=== PATIENT | female | born 1955 | race Caucasian/White ===

== ENCOUNTER 2017-01-15 10:23 | Emergency (ER) | payer OTHER ==
[2017-01-15 10:43] VITALS: RESP 18
--- NOTE | 2017-01-15 11:11 | ED ---
General Adult HPI - General Chief complaint: Fall Stated complaint: Fall Time Seen by Provider: 01/15/17 10:52 Source: patient, RN notes reviewed Mode of arrival: ambulatory Limitations: physical limitation - History of Present Illness Initial comments: 61 yo female presents chief complaint of fall. Patient states she was doing some decorating on the cabinets in her kitchen she lost her balance she fell down she hit her ribs on the right side on a dining room chair and then hit her head. Patient does not know if she passed out or not. Patient states she has a mild headache and some neck stiffness. Patient also complains of some right rib pain after back pain meds causing some numbness and tingling down her left leg. Patient denies any saddle anesthesia any loss by bladder function. Patient states that her ribs are just irritated. Patient denies any abdominal pain. Patient denies any nausea or vomiting. Patient states that she was concerned because she just feels as if she hit. Heart so she thought that she should be seen. Patient states that she does not take any blood thinners and denies any significant health history. Patient states that she is not currently having any other symptoms. Patient states her pain is mild. Patient states just feels as if her whole body was in a car accident afterwards. She just feels tense and sore everywhere. Patient denies any recent fever, chills, shortness of breath, abdominal pain, nausea vomiting, numbness or tingling, dysuria or hematuria, constipation or diarrhea, visual changes, or any other current symptoms. - Related Data Home Medications Medication Instructions Recorded Confirmed FLUoxetine HCL [PROzac] 20 mg PO HS 01/15/17 01/15/17 Previous Rx's Medication Instructions Recorded Hydrocodone/Acetaminophen [[place] 1 each PO Q6HR PRN #20 tab 01/15/17 5-325] Orphenadrine [Norflex] 100 mg PO Q12H #10 tablet.er 01/15/17 Allergies Allergy/AdvReac Type Severity Reaction Status Date / Time No Known Allergies Allergy Verified 01/15/17 10:51 Review of Systems ROS Statement: Those systems with pertinent positive or pertinent negative responses have been documented in the HPI. ROS Other: All systems not noted in ROS Statement are negative. Past Medical History Past Medical History: No Reported History History of Any Multi-Drug Resistant Organisms: MRSA Date of last positivie culture/infection: 2006 MDRO Source:: BREAST Past Surgical History: Appendectomy, Section, Cholecystectomy Additional Past Surgical History / Comment(s): BREAST REDUCTION Past Psychological History: No Psychological Hx Reported Smoking Status: Never smoker Past Alcohol Use History: None Reported Past Drug Use History: None Reported General Exam - General Exam Comments Initial Comments: General: The patient is awake and alert, in no distress, and does not appear acutely ill. : Patient. Hematoma to the right upper side of the head Eye: Pupils are equal, round and reactive to light, extra-ocular movements are intact; there is normal conjunctiva bilaterally. No signs of icterus. Ears, nose, mouth and throat: There are moist mucous membranes and no oral lesions. Neck: The neck is supple, there is no tenderness. Cardiovascular: There is a regular rate and rhythm. No murmur, rub or gallop is appreciated. Respiratory: Lungs are clear to auscultation, respirations are non-labored, breath sounds are equal. No wheezes, stridor, rales, or rhonchi.patient has tenderness along the right lateral chest wall. Gastrointestinal: Soft, non-distended, non-tender abdomen without masses or organomegaly noted. There is no rebound or guarding present. No CVA tenderness. Bowel sounds are unremarkable. Back: There is no tenderness to palpation in the midline. There is no obvious deformity. No rashes noted. Musculoskeletal: Normal ROM, no tenderness, There is no pedal edema. There is no calf tenderness or swelling. Sensation intact. Pulses equal bilaterally 2+. Neurological: CN II-XII intact, There are no obvious motor or sensory deficits. Coordination appears grossly intact. Speech is normal. Skin: Skin is warm and dry and no rashes or lesions are noted. Psychiatric: Cooperative, appropriate mood & affect, normal judgment. Limitations: physical limitation Course Vital Signs 01/15/17 10:37 Temperature 98.4 F Pulse Rate 81 Respiratory 18 Rate Blood Pressure 128/61 O2 Sat by Pulse 97 Oximetry Medical Decision Making - Medical Decision Making 61-year-old female presents emergency room chief complaint of fall.at this time patient's images have been reviewed and are negative acute processes. At this time we did discuss that there is follow-up for this. We discussed follow-up on the ribs to discuss follow-up on the Bactrim. We discussed what to do about her head injury to watch for we discussed return parameters and all her questions. She stated that she understood and she is in agreement with this plan. All questions have been answered. She will be discharged.. - Radiology Data Radiology results: report reviewed, image reviewed Disposition Clinical Impression: Fall, Cervical strain, acute, Lumbar strain, Scalp hematoma, Head injury due to trauma, Contusion of rib on right side Disposition: HOME SELF-CARE Condition: Stable Instructions: Head Injury (ED), Lower Back Exercises (ED), Low Back Strain (ED) , Rib Contusion (ED) Additional Instructions: Please use medication as discussed. Please follow up with family doctor if symptoms have not improved over the next two days. Please return to the emergency room if your symptoms increase or worsen or for any other concerns. Prescriptions: Hydrocodone/Acetaminophen [[place] 5-325] 1 each PO Q6HR PRN #20 tab PRN Reason: Pain Orphenadrine [Norflex] 100 mg PO Q12H #10 tablet.er Referrals: Martha Torres DO [Primary Care Provider] - 1-2 days Time of Disposition: 12:38
--- NOTE | 2017-01-15 11:56 | XR ---
Lumbar spine HISTORY: Trauma and pain 3 views of the lumbar spine Comparisons Lumbar vertebral bodies show height, alignment, and bone dictation is mildly reduced. There is multil evel spondylosis. Sclerosis present in the posterior elements of the lower lumbar spine compatible wi th facet arthropathy mild loss of disc height present at L1-2. Surgical clips present in the right up per quadrant. IMPRESSION: Degenerative disc disease. Facet arthropathy.
--- NOTE | 2017-01-15 12:06 | XR ---
Chest x-ray with right RIBS HISTORY: Trauma and pain Frontal view of the chest, 4 views of the right ribs No comparisons No pneumothorax or pleural effusion. No displaced rib fracture. Cardiac mediastinal silhouette, pulmo nary vascularity and tonio within normal limits accounting for rotation. Evidence of old granulomatous disease present in the right lower lobe. Surgical clips present in the right upper quadrant. IMPRESSION: No displaced rib fracture, consider bone scan for increased sensitivity as indicated. No acute cardiopulmonary disease.
--- NOTE | 2017-01-15 12:13 | CT ---
EXAMINATION TYPE: CT brain radha [facility] DATE OF EXAM: 01/15/2017 COMPARISON: NONE HISTORY: Fall CT DLP: 1398.[address] of the brain was performed. The ventricles, basal cisterns and sulci overlying the cerebral convexities demonstrate mild enlargem ent. There is no evidence for intracranial hemorrhage or sulcal effacement. There is decreased attenuatio n about the periventricular white matter and deep white matter of both cerebral hemispheres, compatib le with chronic small vessel ischemia. No mass effects are seen. If symptoms persist consider MRI. Osseous calvarium is intact. IMPRESSION: 1. Age related atrophic and chronic small vessel ischemic change without acute intracranial process seen at this time. CT Cervical Spine: Unenhanced CT of the cervical spine was performed with bone and soft tissue window settings submitted . Coronal and sagittal reconstruction is obtained. There is normal alignment and prevertebral soft tissues. No evidence for acute cervical fracture . Scattered degenerative disc disease and spondylosis. Biapical scarring. IMPRESSION: 1. No evidence for acute fracture or subluxation of the cervical spine.
[2017-01-15] MEDS ORDERED: HYDROcodone/APAP 5-325MG 1 EACH TAB PO STA (12:35)
[2017-01-15 13:14] VITALS: BP 125/84; PULSE 78; TEMP 97.7
== END 2017-01-15 13:17 | disposition home or self-care (01) ==
LOC: EC 10:23
DX: S16.1XXA Strain of muscle, fascia and tendon at neck level, initial encounter (principal); S39.012A Strain of muscle, fascia and tendon of lower back, initial encounter; S00.03XA Contusion of scalp, initial encounter; S20.211A Contusion of right front wall of thorax, initial encounter; Z86.14 Personal history of Methicillin resistant Staphylococcus aureus infection; Z79.899 Other long term (current) drug therapy; W01.190A Fall on same level from slipping, tripping and stumbling with subsequent striking against furniture, initial encounter; Y92.000 Kitchen of unspecified non-institutional (private) residence as the place of occurrence of the external cause
CPT/HCPCS: 70450; 72100; 72125; 99284

== ENCOUNTER 2017-06-22 19:07 | Inpatient (IN) | payer OTHER ==
[2017-06-22] MEDS ORDERED: SODIUM CHLORIDE 0.9% 500 ML IV STA (20:00)
[2017-06-22] MEDS ORDERED: ONDANSETRON 4 MG/2 ML VIAL IVP STA (20:00)
[2017-06-22] MEDS ORDERED: PANTOPRAZOLE 40 MG/10 ML VIAL IVP STA (20:00)
--- NOTE | 2017-06-22 20:07 | ED ---
General Adult HPI - General Chief complaint: GI Bleed Stated complaint: RECTAL BLEEDING Time Seen by Provider: 06/22/17 19:48 Source: patient, RN notes reviewed, old records reviewed Mode of arrival: ambulatory Limitations: no limitations - History of Present Illness Initial comments: Chief complaint and history of present illness this is a 61-year-old female with a complaint of having flu-type symptoms she described it multiple people at work for the same way nausea vomiting. She said she felt feverish but no back pain. She had loose stool. Throughout the evening she developed bloody stool and then blood around the stool. She does report that she has hemorrhoids. She also reports several weeks ago she had a funny sensation of chest pressure or heaviness lasted several minutes. She also states that due to employment and possible closing of her stool or she's been very anxious. - Related Data Home Medications Medication Instructions Recorded Confirmed FLUoxetine HCL [PROzac] 20 mg PO HS 01/15/17 06/22/17 Naproxen Sodium [Aleve] 220 mg PO BID 06/22/17 06/22/17 Allergies Allergy/AdvReac Type Severity Reaction Status Date / Time No Known Allergies Allergy Verified 06/22/17 19:37 Review of Systems ROS Statement: Those systems with pertinent positive or pertinent negative responses have been documented in the HPI. Review of systems at this time no headache or visual acuity changes no sore throat. No chest heaviness chest pressure and no shortness of breath. She has this discomfort to the abdomen mainly in the right upper quadrant and right midabdomen. She reports dry heaves last night and loose stool throughout the day. No neuro deficits. She also reports having had blood in her stool but adds that she has a history of hemorrhoids as well. All systems are reviewed. Past medical problems significant for hemorrhoids,. Her surgeries include appendectomy, 2 C-sections, cholecystectomy and breast reduction. Family history no cancers. She denies any ALLERGIES. She is a nonsmoker. Drink alcohol socially. ROS Other: All systems not noted in ROS Statement are negative. Past Medical History Past Medical History: No Reported History Additional Past Medical History / Comment(s): hemmorhoids. History of Any Multi-Drug Resistant Organisms: MRSA Date of last positivie culture/infection: 2006 MDRO Source:: BREAST Past Surgical History: Appendectomy, Section, Cholecystectomy Additional Past Surgical History / Comment(s): BREAST REDUCTION Past Psychological History: No Psychological Hx Reported Smoking Status: Never smoker Past Alcohol Use History: None Reported Past Drug Use History: None Reported General Exam - General Exam Comments Initial Comments: General: The patient is awake and alert, reportedly had dry heaves and diarrhea since last night. Crampy abdominal discomfort mainly in the right side. Vital signs shows temperature 98.0 pulse 100 respiratory rate 16 pulse ox 95% room air blood pressure 135/68 Eye: Pupils are equal, round and reactive to light, extra-ocular movements are intact ; there is normal conjunctiva bilaterally. No signs of icterus. Ears, nose, mouth and throat: There are moist mucous membranes and no oral lesions. Neck: The neck is supple, there is no tenderness . Cardiovascular: There is a regular rate and rhythm. No murmur, rub or gallop is appreciated. Respiratory: Lungs are clear to auscultation, respirations are non-labored, breath sounds are equal. No wheezes, stridor, rales, or rhonchi. Gastrointestinal: Soft, non-distended, mildly tender abdomen without masses or organomegaly noted. There is no rebound or guarding present. No CVA tenderness. Bowel sounds are unremarkable. Back: There is no tenderness to palpation in the midline. There is no obvious deformity. No rashes noted. Musculoskeletal: Normal ROM, no tenderness, There is no pedal edema. There is no calf tenderness or swelling. Sensation intact. Neurological: No neuro deficits. Skin: Skin is warm and dry and no rashes or lesions are noted. Psychiatric: Cooperative, patient states she may have had an anxiety attack several weeks ago because her place of employment is closing. Limitations: no limitations Course Vital Signs 06/22/17 06/22/17 06/22/17 19:12 20:45 21:46 Temperature 98 F Pulse Rate 100 82 74 Respiratory 16 18 18 Rate Blood Pressure 135/68 140/63 144/64 O2 Sat by Pulse 95 94 L 97 Oximetry 06/22/17 06/22/17 22:30 23:31 Temperature Pulse Rate 86 90 Respiratory 18 18 Rate Blood Pressure 142/67 140/64 O2 Sat by Pulse 96 96 Oximetry EKG Findings - EKG Comments: EKG Findings:: EKG was done and reviewed at 2014 showing normal sinus rhythm nonspecific ST-T wave changes. Rate 82. Was 146 QRS 74 QT [address] Chiu Medical Decision Making - Medical Decision Making Medical decision making; this is a 61-year-old female here with several complaints. The patient reports that she had some blood in her stool earlier today she was suffering some flu type symptoms with nausea but no vomiting L feverish and then followed by loose stool. Her discomfort is more toward the right lower quadrant area. Decreased appetite and chills. Labs show white count 17 hemoglobin 15 hematocrit of 43 with an INR 1.0 and a potassium 3.9 BUN 10 creatinine 0.7 GFR greater than 90. Glucose 114. Urine shows 2 reds 5 whites. Influenza AB reported to be negative.C. diff negative. To examination done with the assistance of Keily, [employer] tech was black in color and guaiac positive on testing. Patient continues have discomfort more toward the right lower quadrant area CAT scan with IV and oral contrast has been ordered. X-ray of the abdomen was done 2 views and reviewed by radiologist his impression is there is no definite free intraperitoneal air. There is nonspecific nonobstructive bowel gas pattern. Surgical clips are seen in the gallbladder fossa. Soft tissue density in the pelvis is felt to be urinary bladder. Impression no significant findings. As read by Dr. Singh CT of the abdomen was done with IV and oral contrast. The significant findings include there is a long segment of wall thickening involving the right colon consistent with nonspecific colitis. The wall thickening is non-warm and this is more likely Crohn's disease or infectious colitis. I think ischemic colitis less light. No evidence of bowel obstruction. Low density left adrenal mass consistent with a benign etiology. Multiple hepatic cysts. 2 cm right renal cortical cyst. As read by Dr. Kimble I reported this to the patient. the patient has been started on antibiotics including Zosyn and Flagyl. Patient be admitted to the hospital for further evaluation . - Lab Data Result diagrams: 06/22/17 20:35 06/22/17 20:35 Lab Results 06/22/17 06/22/17 06/22/17 Range/Units 20:35 20:35 20:35 WBC (3.8-10.6) k/uL RBC (3.80-5.40) m/uL Hgb (11.4-16.0) gm/dL Hct (34.0-46.0) % MCV (80.0-100.0) fL MCH (25.0-35.0) pg MCHC (31.0-37.0) g/dL RDW (11.5-15.5) % Plt Count (150-450) k/uL Neutrophils % % Lymphocytes % % Monocytes % % Eosinophils % % Basophils % % Neutrophils # (1.3-7.7) k/uL Lymphocytes # (1.0-4.8) k/uL Monocytes # (0-1.0) k/uL Eosinophils # (0-0.7) k/uL Basophils # (0-0.2) k/uL PT (9.0-12.0) sec INR (<1.2) Sodium 140 (137-145) mmol/L Potassium 3.9 (3.5-5.1) mmol/L Chloride 103 (98-107) mmol/L Carbon Dioxide 26 (22-30) mmol/L Anion Gap 11 mmol/L BUN 10 (7-17) mg/dL Creatinine 0.70 (0.52-1.04) mg/dL Est GFR (CKD-EPI)AfAm >90 (>60 ml/min/1.73 sqM) Est GFR (CKD-EPI)NonAf >90 (>60 ml/min/1.73 sqM) Glucose 114 H (74-99) mg/dL Plasma Lactic Acid Manjeet (0.7-2.0) mmol/L Calcium 9.3 (8.4-10.2) mg/dL Total Bilirubin 0.7 (0.2-1.3) mg/dL AST 22 (14-36) U/L ALT 26 (9-52) U/L Alkaline Phosphatase 103 (38-126) U/L Total Creatine Kinase 66 (30-135) U/L CK-MB (CK-2) 0.6 (0.0-2.4) ng/mL CK-MB (CK-2) Rel Index 0.9 Troponin I <0.012 (0.000-0.034) ng/mL Total Protein 7.3 (6.3-8.2) g/dL Albumin 4.2 (3.5-5.0) g/dL Amylase 34 (30-110) U/L Lipase 71 (23-300) U/L Urine Color Urine Appearance (Clear) Urine pH (5.0-8.0) Ur Specific [place] (1.001-1.035) Urine Protein (Negative) Urine Glucose (UA) (Negative) Urine Ketones (Negative) Urine Blood (Negative) Urine Nitrite (Negative) Urine Bilirubin (Negative) Urine Urobilinogen (<2.0) mg/dL Ur Leukocyte Esterase (Negative) Urine RBC (0-5) /hpf Urine WBC (0-5) /hpf Ur Squamous Epith Cells (0-4) /hpf Amorphous Sediment (None) /hpf Urine Mucus (None) /hpf Stool Occult Blood (Negative) C. difficile (EIA) Intrp Negative (Negative) Influenza Type A RNA (Not Detectd) Influenza Type B (PCR) (Not Detectd) 06/22/17 06/22/17 06/22/17 Range/Units 20:35 20:35 20:35 WBC 17.1 H (3.8-10.6) k/uL RBC 4.69 (3.80-5.40) m/uL Hgb 15.1 (11.4-16.0) gm/dL Hct 43.2 (34.0-46.0) % MCV 92.0 (80.0-100.0) fL MCH 32.2 (25.0-35.0) pg MCHC 35.0 (31.0-37.0) g/dL RDW 12.6 (11.5-15.5) % Plt Count 205 (150-450) k/uL Neutrophils % 82 % Lymphocytes % 12 % Monocytes % 4 % Eosinophils % 1 % Basophils % 0 % Neutrophils # 14.0 H (1.3-7.7) k/uL Lymphocytes # 2.1 (1.0-4.8) k/uL Monocytes # 0.8 (0-1.0) k/uL Eosinophils # 0.1 (0-0.7) k/uL Basophils # 0.0 (0-0.2) k/uL PT 10.1 (9.0-12.0) sec INR 1.0 (<1.2) Sodium (137-145) mmol/L Potassium (3.5-5.1) mmol/L Chloride (98-107) mmol/L Carbon Dioxide (22-30) mmol/L Anion Gap mmol/L BUN (7-17) mg/dL Creatinine (0.52-1.04) mg/dL Est GFR (CKD-EPI)AfAm (>60 ml/min/1.73 sqM) Est GFR (CKD-EPI)NonAf (>60 ml/min/1.73 sqM) Glucose (74-99) mg/dL Plasma Lactic Acid Manjeet 1.5 (0.7-2.0) mmol/L Calcium (8.4-10.2) mg/dL Total Bilirubin (0.2-1.3) mg/dL AST (14-36) U/L ALT (9-52) U/L Alkaline Phosphatase (38-126) U/L Total Creatine Kinase (30-135) U/L CK-MB (CK-2) (0.0-2.4) ng/mL CK-MB (CK-2) Rel Index Troponin I (0.000-0.034) ng/mL Total Protein (6.3-8.2) g/dL Albumin (3.5-5.0) g/dL Amylase (30-110) U/L Lipase (23-300) U/L Urine Color Urine Appearance (Clear) Urine pH (5.0-8.0) Ur Specific [place] (1.001-1.035) Urine Protein (Negative) Urine Glucose (UA) (Negative) Urine Ketones (Negative) Urine Blood (Negative) Urine Nitrite (Negative) Urine Bilirubin (Negative) Urine Urobilinogen (<2.0) mg/dL Ur Leukocyte Esterase (Negative) Urine RBC (0-5) /hpf Urine WBC (0-5) /hpf Ur Squamous Epith Cells (0-4) /hpf Amorphous Sediment (None) /hpf Urine Mucus (None) /hpf Stool Occult Blood (Negative) C. difficile (EIA) Intrp (Negative) Influenza Type A RNA (Not Detectd) Influenza Type B (PCR) (Not Detectd) 06/22/17 06/22/17 06/22/17 Range/Units 20:35 20:35 22:35 WBC (3.8-10.6) k/uL RBC (3.80-5.40) m/uL Hgb (11.4-16.0) gm/dL Hct (34.0-46.0) % MCV (80.0-100.0) fL MCH (25.0-35.0) pg MCHC (31.0-37.0) g/dL RDW (11.5-15.5) % Plt Count (150-450) k/uL Neutrophils % % Lymphocytes % % Monocytes % % Eosinophils % % Basophils % % Neutrophils # (1.3-7.7) k/uL Lymphocytes # (1.0-4.8) k/uL Monocytes # (0-1.0) k/uL Eosinophils # (0-0.7) k/uL Basophils # (0-0.2) k/uL PT (9.0-12.0) sec INR (<1.2) Sodium (137-145) mmol/L Potassium (3.5-5.1) mmol/L Chloride (98-107) mmol/L Carbon Dioxide (22-30) mmol/L Anion Gap mmol/L BUN (7-17) mg/dL Creatinine (0.52-1.04) mg/dL Est GFR (CKD-EPI)AfAm (>60 ml/min/1.73 sqM) Est GFR (CKD-EPI)NonAf (>60 ml/min/1.73 sqM) Glucose (74-99) mg/dL Plasma Lactic Acid Manjeet (0.7-2.0) mmol/L Calcium (8.4-10.2) mg/dL Total Bilirubin (0.2-1.3) mg/dL AST (14-36) U/L ALT (9-52) U/L Alkaline Phosphatase (38-126) U/L Total Creatine Kinase (30-135) U/L CK-MB (CK-2) (0.0-2.4) ng/mL CK-MB (CK-2) Rel Index Troponin I (0.000-0.034) ng/mL Total Protein (6.3-8.2) g/dL Albumin (3.5-5.0) g/dL Amylase (30-110) U/L Lipase (23-300) U/L Urine Color Light Yellow Urine Appearance Clear (Clear) Urine pH 5.5 (5.0-8.0) Ur Specific [place] 1.008 (1.001-1.035) Urine Protein Negative (Negative) Urine Glucose (UA) Negative (Negative) Urine Ketones Negative (Negative) Urine Blood Small H (Negative) Urine Nitrite Negative (Negative) Urine Bilirubin Negative (Negative) Urine Urobilinogen <2.0 (<2.0) mg/dL Ur Leukocyte Esterase Trace H (Negative) Urine RBC 2 (0-5) /hpf Urine WBC 5 (0-5) /hpf Ur Squamous Epith Cells <1 (0-4) /hpf Amorphous Sediment Rare H (None) /hpf Urine Mucus Occasional H (None) /hpf Stool Occult Blood Positive H (Negative) C. difficile (EIA) Intrp (Negative) Influenza Type A RNA Not Detected (Not Detectd) Influenza Type B (PCR) Not Detected (Not Detectd) Disposition Clinical Impression: Infectious colitis Disposition: ADMITTED IP TO THIS HOSP Condition: Serious Referrals: Martha Torres DO [Primary Care Provider] - 1-2 days
[2017-06-22 21:01] LABS: Basophils % (A) 0 %; Eosinophils # (A) 0.1 k/uL (0-0.7); Eosinophils % (A) 1 %; HCT 43.2 % (34.0-46.0); HGB 15.1 gm/dL (11.4-16.0); Lymphocytes # (A) 2.1 k/uL (1.0-4.8); Lymphocytes % (A) 12 %; MCH 32.2 pg (25.0-35.0); Mean Platelet Volume 7.1; Monocytes # (A) 0.8 k/uL (0-1.0); Monocytes % (A) 4 %; Neutrophils % (A) 82 %; Platelet Count 205 k/uL (150-450); RBC 4.69 m/uL (3.80-5.40); RDW 12.6 % (11.5-15.5); WBC 17.1 k/uL (3.8-10.6)
[2017-06-22 21:04] LABS: Amorphous Sediment,Urine Rare /hpf; Appearance,Urine Clear (Clear); Bilirubin,Urine Negative (Negative); Blood,Urine Small (Negative); Color,Urine Light Yellow; Glucose,Urine (UA) Negative (Negative); Ketones,Urine Negative (Negative); Leukocyte Esterase,Urine Trace (Negative); Mucus,Urine Occasional /hpf; Nitrite,Urine Negative (Negative); PH, Urine 5.5 (5.0-8.0); Protein,Urine Negative (Negative); RBC,Urine 2 /hpf (0-5); Specific Gravity,Urine 1.008 (1.001-1.035); Squamous Epithelial Cell,Urine <1 /hpf (0-4); Urobilinogen,Urine <2.0 mg/dL (<2.0); WBC,Urine 5 /hpf (0-5)
[2017-06-22 21:11] LABS: Prothrombin Time 10.1 sec (9.0-12.0)
[2017-06-22 21:13] LABS: ALT 26 U/L (9-52); AST 22 U/L (14-36); Albumin 4.2 g/dL (3.5-5.0); Alkaline Phosphatase 103 U/L (38-126); Amylase 34 U/L (30-110); Anion Gap 11 mmol/L; Blood Urea Nitrogen 10 mg/dL (7-17); Calcium 9.3 mg/dL (8.4-10.2); Carbon Dioxide 26 mmol/L (22-30); Chloride 103 mmol/L (98-107); Glucose 114 mg/dL (74-99); Lipase 71 U/L (23-300); Potassium 3.9 mmol/L (3.5-5.1); Sodium 140 mmol/L (137-145); Total Bilirubin 0.7 mg/dL (0.2-1.3); Total Protein 7.3 g/dL (6.3-8.2)
--- NOTE | 2017-06-22 21:14 | XR ---
Examination: Abdomen complete 4 views the abdomen were obtained. A single upright and 3 supine. HISTORY: Abdominal pain FINDINGS: There is no definitive free intraperitoneal air. There is nonspecific nonobstructive bowel gas pattern. Surgical clips are seen in the gallbladder fos sa. Soft tissue density in the pelvis is felt to be the urinary bladder. IMPRESSION: No significant findings.
[2017-06-22 21:22] LABS: Creatine Kinase 66 U/L (30-135)
[2017-06-22 21:36] LABS: Creatine Kinase MB 0.6 ng/mL (0.0-2.4); Troponin I <0.012 ng/mL (0.000-0.034)
[2017-06-22] MEDS ORDERED: RX INFO: IV CONTRAST WAS GIVEN 1 EACH MISC MISCELLANE PRN (22:38)
[2017-06-22] MEDS ORDERED: IOHEXOL 350 MG/ML 25 ML BOTTLE (ORAL USE) PO PRN (22:38)
[2017-06-23] MEDS ORDERED: PIPERACILLIN-TAZOBACTAM 3.375 GM in DEXTROSE/WATER 1 50ML.BAG IVPB STA (00:17)
[2017-06-23] MEDS ORDERED: metroNIDAZOLE-NS PMX 500 MG in SALINE 1 100ML.BAG IVPB STA (00:18)
--- NOTE | 2017-06-23 00:21 | CT ---
EXAMINATION TYPE: CT abdomen pelvis w con DATE OF EXAM: 06/23/2017 COMPARISON: NONE HISTORY: rectal bleed CT DLP: 2230.60 mGycm Automated exposure control for dose reduction was used. TECHNIQUE: Helical acquisition of images was performed from the lung bases through the pelvis. CONTRAST: Performed with Oral Contrast and with IV Contrast, patient injected with 100 mL of Omnipaque 300. FINDINGS: Lung bases are clear of consolidation. There is no pleural effusion. There is no pericardial effusion . There are multiple low-density rounded areas in the liver that measure up to 2 cm consistent with mul tiple cysts. These do not appear to have any enhancement. The spleen and pancreas appear normal. Bile ducts are not dilated. There are clips from cholecystectomy. There is a 2 cm somewhat rounded low-density area in the left adrenal gland. Kidneys show satisfactor y contrast opacification. There is no hydronephrosis. There is a 2 cm cyst in the interpolar right k idney. There is significant thickening of the wall of the right colon extending up to the hepatic flexure an d down to the cecum. The wall is thickened up to 1 cm. There is some fat stranding around the right c olon which is minimal. There is a tiny amount of fluid in the right paracolic gutter. The small bowel appears fairly normal. There is no evidence of a bowel obstruction. Bladder distends smoothly. I see no bony destructive process. Uterus is anteverted. IMPRESSION: THERE IS A LONG SEGMENT OF WALL THICKENING INVOLVING THE RIGHT COLON CONSISTENT WITH NONSPECIFIC COLI TIS. THE WALL THICKENING IS NONUNIFORM AND THIS IS MORE LIKELY CROHN'S DISEASE OR INFECTIOUS COLITIS. I THINK ISCHEMIC COLITIS IS LESS LIKELY. . NO EVIDENCE OF A BOWEL OBSTRUCTION. LOW-DENSITY LEFT ADRENAL MASS CONSISTENT WITH BENIGN ETIOLOGY. MULTIPLE HEPATIC CYSTS. 2 CM RIGHT RENAL CORTICAL CYST.
[2017-06-23] MEDS ORDERED: NALOXONE 0.4 MG/ML 1 ML VIAL IV PRN (00:33)
[2017-06-23] MEDS ORDERED: MORPHINE SULFATE 4 MG/ML SYRINGE IV PRN (00:33)
[2017-06-23] MEDS: SODIUM CHLORIDE 0.9% 1,000 ML IV SCH ×3 (02:46→20:45)
[2017-06-23] MEDS: PANTOPRAZOLE 40 MG/10 ML VIAL IV SCH (08:33)
--- NOTE | 2017-06-23 11:44 | P.GSCN ---
History of Present Illness Consult date: 06/23/17 Reason for Consult: Abdominal pain, diarrhea History of present illness: This is a 61-year-old female who sees Dr. Martha Torres is an outpatient. Patient was admitted through the hospital emergency room for complaints of abdominal pain and diarrhea. She states her last colonoscopy was approximately 10-14 years ago. She states her pain is improved. However she still has some diarrhea. Past Medical History Past Medical History: No Reported History Additional Past Medical History / Comment(s): hemmorhoids. History of Any Multi-Drug Resistant Organisms: MRSA Year Discovered:: 2006 MDRO Source:: BREAST Past Surgical History: Appendectomy, Section, Cholecystectomy Additional Past Surgical History / Comment(s): BREAST REDUCTION c section x2 Past Psychological History: Anxiety Smoking Status: Never smoker Past Alcohol Use History: None Reported Past Drug Use History: None Reported - Past Family History Mother Family Medical History: No Reported History Father Family Medical History: No Reported History Medications and Allergies Home Medications Medication Instructions Recorded Confirmed Type FLUoxetine HCL [PROzac] 20 mg PO HS 01/15/17 06/22/17 History Naproxen Sodium [Aleve] 220 mg PO BID 06/22/17 06/22/17 History Allergies Allergy/AdvReac Type Severity Reaction Status Date / Time No Known Allergies Allergy Verified 06/22/17 19:37 Surgical - Exam Vital Signs Temp Pulse Resp BP Pulse Ox 98 F 100 16 135/68 95 06/22/17 19:12 06/22/17 19:12 06/22/17 19:12 06/22/17 19:12 06/22/17 19:12 - General well developed, no distress - Eyes PERRL - ENT normal pinna - Neck no masses - Respiratory normal expansion - Cardiovascular Rhythm: regular - Abdomen Abdomen soft. There is some mild tenderness in the right lower quadrant. Results - Labs 06/22/17 20:35 06/22/17 20:35 Abnormal Lab Results - Last 24 Hours (Table) 06/22/17 06/22/17 06/22/17 Range/Units 20:35 20:35 20:35 WBC 17.1 H (3.8-10.6) k/uL Neutrophils # 14.0 H (1.3-7.7) k/uL Glucose 114 H (74-99) mg/dL Urine Blood Small H (Negative) Ur Leukocyte Esterase Trace H (Negative) Amorphous Sediment Rare H (None) /hpf Urine Mucus Occasional H (None) /hpf Stool Occult Blood (Negative) 06/22/17 Range/Units 22:35 WBC (3.8-10.6) k/uL Neutrophils # (1.3-7.7) k/uL Glucose (74-99) mg/dL Urine Blood (Negative) Ur Leukocyte Esterase (Negative) Amorphous Sediment (None) /hpf Urine Mucus (None) /hpf Stool Occult Blood Positive H (Negative) Microbiology - Last 24 Hours (Table) 06/22/17 20:35 Urine Culture - Preliminary Urine,Voided Diabetes panel 06/22/17 Range/Units 20:35 Sodium 140 (137-145) mmol/L Potassium 3.9 (3.5-5.1) mmol/L Chloride 103 (98-107) mmol/L Carbon Dioxide 26 (22-30) mmol/L BUN 10 (7-17) mg/dL Creatinine 0.70 (0.52-1.04) mg/dL Glucose 114 H (74-99) mg/dL Calcium 9.3 (8.4-10.2) mg/dL AST 22 (14-36) U/L ALT 26 (9-52) U/L Alkaline Phosphatase 103 (38-126) U/L Total Protein 7.3 (6.3-8.2) g/dL Albumin 4.2 (3.5-5.0) g/dL Calcium panel 06/22/17 Range/Units 20:35 Calcium 9.3 (8.4-10.2) mg/dL Albumin 4.2 (3.5-5.0) g/dL Pituitary panel 06/22/17 Range/Units 20:35 Sodium 140 (137-145) mmol/L Potassium 3.9 (3.5-5.1) mmol/L Chloride 103 (98-107) mmol/L Carbon Dioxide 26 (22-30) mmol/L BUN 10 (7-17) mg/dL Creatinine 0.70 (0.52-1.04) mg/dL Glucose 114 H (74-99) mg/dL Calcium 9.3 (8.4-10.2) mg/dL Adrenal panel 06/22/17 Range/Units 20:35 Sodium 140 (137-145) mmol/L Potassium 3.9 (3.5-5.1) mmol/L Chloride 103 (98-107) mmol/L Carbon Dioxide 26 (22-30) mmol/L BUN 10 (7-17) mg/dL Creatinine 0.70 (0.52-1.04) mg/dL Glucose 114 H (74-99) mg/dL Calcium 9.3 (8.4-10.2) mg/dL Total Bilirubin 0.7 (0.2-1.3) mg/dL AST 22 (14-36) U/L ALT 26 (9-52) U/L Alkaline Phosphatase 103 (38-126) U/L Total Protein 7.3 (6.3-8.2) g/dL Albumin 4.2 (3.5-5.0) g/dL - Imaging CT scan - abdomen: report reviewed (The plantar changes right colon) Assessment and Plan Assessment: Abdominal pain, diarrhea. Computed tomography scan shows evidence of inflamed or change right colon. Patient will undergo colonoscopy tomorrow.
[2017-06-23] MEDS ORDERED: PEG 3350-NA SULF,BICARB,CL/KCL 4,000 ML BOTTLE PO ONE (11:46)
[2017-06-23] MEDS ORDERED: MORPHINE SULFATE/PF 10MG/10ML VL IV PRN ×2 (13:49→15:16)
[2017-06-23] MEDS ORDERED: ONDANSETRON 4 MG/2 ML VIAL IVP PRN (15:18)
--- NOTE | 2017-06-23 15:22 | P.HPIM ---
History of Present Illness H&P Date: 06/23/17 This is a 61-year-old female with past medical history noted below who presented to the emergency room with worsening abdominal pain and blood in her stool. Patient said that her symptoms started couple of days ago and is being getting progressively worse. She described having a lot of pain and discomfort mostly in the lower abdomen. She said that she was having loose stool and what she describes as bloody diarrhea. She said that she had too many bowel movements to count. She was also nauseated but no vomiting. She denies heavy alcohol use or frequent NSAIDs use. She denies having any history of GI bleed in the past. She said that she has similar symptoms in the past that were short and she attributes that to possible flu in her stomach. She was evaluated in the emergency room and was found to be hemodynamically stable. Computed tomography scan of the abdomen and pelvis showed right colitis. Her lab work was all within acceptable range. Review of Systems Review of system: 14 points review of systems were obtained and were negative except to what were mentioned in the HPI. Past Medical History Past Medical History: No Reported History Additional Past Medical History / Comment(s): hemmorhoids. History of Any Multi-Drug Resistant Organisms: MRSA Date of last positivie culture/infection: 2006 MDRO Source:: BREAST Past Surgical History: Appendectomy, Section, Cholecystectomy Additional Past Surgical History / Comment(s): BREAST REDUCTION c section x2 Past Psychological History: Anxiety Smoking Status: Never smoker Past Alcohol Use History: None Reported Past Drug Use History: None Reported - Past Family History Mother Family Medical History: No Reported History Father Family Medical History: No Reported History Medications and Allergies Home Medications Medication Instructions Recorded Confirmed Type FLUoxetine HCL [PROzac] 20 mg PO HS 01/15/17 06/22/17 History Naproxen Sodium [Aleve] 220 mg PO BID 06/22/17 06/22/17 History Allergies Allergy/AdvReac Type Severity Reaction Status Date / Time No Known Allergies Allergy Verified 06/22/17 19:37 Physical Exam Vitals: Vital Signs Temp Pulse Pulse Resp BP BP Pulse Ox 06/23/17 07:00 99.5 F 97 14 107/53 94 L 06/23/17 02:58 96.6 F L 78 16 137/68 95 06/23/17 01:03 98.1 F 94 18 138/61 96 06/22/17 23:31 90 18 140/64 96 06/22/17 22:30 86 18 142/67 96 06/22/17 21:46 74 18 144/64 97 06/22/17 20:45 82 18 140/63 94 L 06/22/17 19:12 98 F 100 16 135/68 95 General: The patient is awake and alert, in no distress Eye: there is normal conjunctiva bilaterally. Neck: The neck is supple, there is no JVD. Cardiovascular: Normal S1-S2, no S3-S4, no murmurs. Respiratory: Lungs clear to auscultation bilaterally Gastrointestinal: Abdomen is soft, with moderate tenderness to palpation worse in the lower abdomen Musculoskeletal: There is no pedal edema. Neurological:. Speech is normal. Skin: Skin is warm and dry Results CBC & Chem 7: 06/22/17 20:35 06/22/17 20:35 Labs: Abnormal Lab Results - Last 24 Hours (Table) 06/22/17 06/22/17 06/22/17 Range/Units 20:35 20:35 20:35 WBC 17.1 H (3.8-10.6) k/uL Neutrophils # 14.0 H (1.3-7.7) k/uL Glucose 114 H (74-99) mg/dL Urine Blood Small H (Negative) Ur Leukocyte Esterase Trace H (Negative) Amorphous Sediment Rare H (None) /hpf Urine Mucus Occasional H (None) /hpf Stool Occult Blood (Negative) 06/22/17 Range/Units 22:35 WBC (3.8-10.6) k/uL Neutrophils # (1.3-7.7) k/uL Glucose (74-99) mg/dL Urine Blood (Negative) Ur Leukocyte Esterase (Negative) Amorphous Sediment (None) /hpf Urine Mucus (None) /hpf Stool Occult Blood Positive H (Negative) Microbiology - Last 24 Hours (Table) 06/22/17 20:35 Stool Culture - Preliminary Stool 06/22/17 20:35 Urine Culture - Preliminary Urine,Voided Thrombosis Risk Factor Assmnt - Choose All That Apply Any of the Below Risk Factors Present?: Yes Each Factor Represents 1 point: Obesity (BMI >25) Other Risk Factors: Yes Each Risk Factor Represents 2 Points: Age 61-74 years Other congenital or acquired thrombophilia - If yes, enter type in comment: No Thrombosis Risk Factor Assessment Total Risk Factor Score: 3 Thrombosis Risk Factor Assessment Level: Moderate Risk Assessment and Plan Assessment: 1. Acute colitis involving the right colon: Most likely infectious in origin. Patient is on IV Levaquin and Flagyl. C. diff screen was negative. We will continue IV fluids. Also in the differential diagnosis is Crohn's disease but less likely. 2. Hematochezia secondary to acute colitis. Hemoglobin is stable. We'll repeat lab work in the morning. 3. Underlying major depressive disorder Today, I reviewed her medication list and lab work results. Continue antibiotic. General surgery consulted for further evaluation. IV Protonix ordered daily. Repeat lab work in the morning. Continue IV fluid hydration.
[2017-06-23] MEDS: LEVOFLOXACIN 500MG-D5W PMX 500 MG in DEXTROSE/WATER 1 100ML.BAG IVPB SCH (15:35)
[2017-06-23] MEDS: metroNIDAZOLE-NS PMX 500 MG in SALINE 1 100ML.BAG IVPB SCH (18:01)
[2017-06-23] MEDS: FLUoxetine HCL 20 MG CAP PO SCH (20:45)
[2017-06-23] MEDS: HEPARIN SODIUM,PORCINE 5,000 UNIT/ML 1 ML VIAL SQ SCH (20:45)
[2017-06-24] MEDS: metroNIDAZOLE-NS PMX 500 MG in SALINE 1 100ML.BAG IVPB SCH ×3 (00:23→16:34)
[2017-06-24] MEDS: SODIUM CHLORIDE 0.9% 1,000 ML IV SCH ×2 (06:06→11:25)
[2017-06-24] MEDS: HEPARIN SODIUM,PORCINE 5,000 UNIT/ML 1 ML VIAL SQ SCH ×2 (07:35→20:07)
[2017-06-24] MEDS: PANTOPRAZOLE 40 MG/10 ML VIAL IV SCH (08:44)
[2017-06-24 09:32] LABS: Basophils % (A) 0 %; Eosinophils # (A) 0.2 k/uL (0-0.7); Eosinophils % (A) 2 %; HCT 39.2 % (34.0-46.0); HGB 13.3 gm/dL (11.4-16.0); Lymphocytes # (A) 2.4 k/uL (1.0-4.8); Lymphocytes % (A) 18 %; MCH 31.5 pg (25.0-35.0); MCHC 33.9 g/dL (31.0-37.0); MCV 92.8 fL (80.0-100.0); Mean Platelet Volume 7.4; Monocytes # (A) 0.5 k/uL (0-1.0); Monocytes % (A) 4 %; Neutrophils # (A) 9.9 k/uL (1.3-7.7); Neutrophils % (A) 75 %; Platelet Count 186 k/uL (150-450); RBC 4.23 m/uL (3.80-5.40); RDW 12.6 % (11.5-15.5); WBC 13.1 k/uL (3.8-10.6)
[2017-06-24 09:40] LABS: ALT 28 U/L (9-52); AST 21 U/L (14-36); Albumin 3.8 g/dL (3.5-5.0); Alkaline Phosphatase 88 U/L (38-126); Anion Gap 11 mmol/L; Blood Urea Nitrogen 4 mg/dL (7-17); Calcium 8.9 mg/dL (8.4-10.2); Carbon Dioxide 26 mmol/L (22-30); Chloride 106 mmol/L (98-107); Glucose 92 mg/dL (74-99); Potassium 3.1 mmol/L (3.5-5.1); Sodium 143 mmol/L (137-145); Total Bilirubin 0.6 mg/dL (0.2-1.3); Total Protein 6.5 g/dL (6.3-8.2)
[2017-06-24] MEDS ORDERED: Potassium Replacement Protocol 1 EACH MISC MISCELLANE PRN ×3 (11:38→18:21)
[2017-06-24] MEDS: POTASSIUM CHLORIDE 10 MEQ in SODIUM CHLORIDE 0.9% 100 ML IVPB SCH ×2 (12:29→13:29)
--- NOTE | 2017-06-24 14:15 | P.PN ---
Subjective Progress Note Date: 06/24/17 This is a 61-year-old female with past medical history noted below who presented to the emergency room with worsening abdominal pain and blood in her stool. Patient said that her symptoms started couple of days ago and is being getting progressively worse. She described having a lot of pain and discomfort mostly in the lower abdomen. She said that she was having loose stool and what she describes as bloody diarrhea. She said that she had too many bowel movements to count. She was also nauseated but no vomiting. She denies heavy alcohol use or frequent NSAIDs use. She denies having any history of GI bleed in the past. She said that she has similar symptoms in the past that were short and she attributes that to possible flu in her stomach. She was evaluated in the emergency room and was found to be hemodynamically stable. Computed tomography scan of the abdomen and pelvis showed right colitis. Her lab work was all within acceptable range. 06/24/2017 patient's colonoscopy has been rescheduled for tomorrow per Dr. Clifton due to scheduling conflict. Patient has had no further blood in the stools. Still having some lower abdominal discomfort. Denies any nausea or vomiting. Denies any chest pain or shortness of breath. Denies any urinary symptoms. Objective - Vital Signs Vital signs: Vital Signs Temp 98.4 F 06/24/17 07:00 Pulse 82 06/24/17 07:00 Resp 20 06/24/17 07:00 BP 117/56 06/24/17 07:00 Pulse Ox 94 L 06/24/17 07:00 Intake & Output 06/23/17 06/24/17 06/24/17 18:59 06:59 18:59 Intake Total 200 700 Balance 200 700 Weight 99.79 kg Intake: Intake, IV Titration 700 Amount Potassium Chloride 10 meq 200 In Sodium Chloride 0.9% 100 ml @ 100 mls/hr IVPB Q1H DEMAR Rx#:[id number] Sodium Chloride 0.9% 1, 400 000 ml @ 100 mls/hr IV . Q10H DEMAR Rx#:[id number] metroNIDAZOLE-NS PMX 500 100 mg In Saline 1 100ml.bag @ 100 mls/hr IVPB Q8H DEMAR Rx#:[id number] Oral 200 Other: Voiding Method Toilet Bedside Commode # Voids 2 4 4 # Bowel Movements 2 0 0 - Exam Head normocephalic Neck supple Lungs clear to auscultation bilaterally no wheezing or crackles Heart regular rate and rhythm S1-S2, no rub or gallop Abdomen is soft nontender nondistended positive bowel sounds no hepatosplenomegaly Extremities no edema Neuro alert and orientated to 3 - Labs CBC & Chem 7: 06/24/17 08:54 06/24/17 08:54 Labs: Abnormal Lab Results - Last 24 Hours (Table) 06/24/17 06/24/17 Range/Units 08:54 08:54 WBC 13.1 H (3.8-10.6) k/uL Neutrophils # 9.9 H (1.3-7.7) k/uL Potassium 3.1 L (3.5-5.1) mmol/L BUN 4 L (7-17) mg/dL Microbiology - Last 24 Hours (Table) 06/22/17 20:35 Urine Culture - Final Urine,Voided 06/22/17 20:35 Stool Culture - Preliminary Stool Assessment and Plan Assessment: 1. Acute colitis involving the right colon: Most likely infectious in origin. Patient is on IV Levaquin and Flagyl. C. diff screen was negative. We will continue IV fluids. Also in the differential diagnosis is Crohn's disease but less likely. Patient rescheduled for colonoscopy tomorrow 2. Hematochezia secondary to acute colitis. Hemoglobin is stable. We'll repeat lab work in the morning. 3. Underlying major depressive disorder I performed an examination of the patient and discussed their management with the physician Spear Fisher. I have reviewed the Physician Spear Fisher's notes and agree with the documented findings and plan of care
[2017-06-24] MEDS: LEVOFLOXACIN 500MG-D5W PMX 500 MG in DEXTROSE/WATER 1 100ML.BAG IVPB SCH (14:30)
--- NOTE | 2017-06-24 16:42 | P.PN ---
Progress Note - Text Progress Note Date: 06/24/17 The patient was scheduled for colonoscopy today. However due to the number of add-on cases her case could not be performed until late tonight. It was decided to cancel her colonoscopy and reschedule for tomorrow. On exam her vital signs are stable. Her abdomen soft. She has some mild right- sided tenderness. Colitis. Patient will undergo colonoscopy in the a.m.
[2017-06-24] MEDS: POTASSIUM CHLORIDE ER 20 MEQ TAB.ER PO SCH ×3 (19:17→22:26)
[2017-06-24] MEDS: FLUoxetine HCL 20 MG CAP PO SCH (20:05)
[2017-06-25 00:05] VITALS: RESP 16
[2017-06-25] MEDS: metroNIDAZOLE-NS PMX 500 MG in SALINE 1 100ML.BAG IVPB SCH ×2 (00:59→07:50)
[2017-06-25] MEDS: SODIUM CHLORIDE 0.9% 1,000 ML IV SCH ×2 (05:18→13:07)
[2017-06-25] MEDS: HEPARIN SODIUM,PORCINE 5,000 UNIT/ML 1 ML VIAL SQ SCH (07:53)
[2017-06-25] MEDS: PANTOPRAZOLE 40 MG/10 ML VIAL IV SCH (07:53)
[2017-06-25 08:14] LABS: Basophils % (A) 0 %; Eosinophils # (A) 0.3 k/uL (0-0.7); Eosinophils % (A) 3 %; HCT 36.3 % (34.0-46.0); HGB 12.4 gm/dL (11.4-16.0); Lymphocytes # (A) 1.9 k/uL (1.0-4.8); Lymphocytes % (A) 23 %; MCH 31.7 pg (25.0-35.0); MCHC 34.2 g/dL (31.0-37.0); MCV 92.5 fL (80.0-100.0); Mean Platelet Volume 7.3; Monocytes # (A) 0.4 k/uL (0-1.0); Monocytes % (A) 5 %; Neutrophils # (A) 5.5 k/uL (1.3-7.7); Neutrophils % (A) 68 %; Platelet Count 193 k/uL (150-450); RBC 3.92 m/uL (3.80-5.40); RDW 12.6 % (11.5-15.5); WBC 8.1 k/uL (3.8-10.6)
[2017-06-25 08:50] LABS: ALT 21 U/L (9-52); AST 20 U/L (14-36); Albumin 3.2 g/dL (3.5-5.0); Alkaline Phosphatase 67 U/L (38-126); Anion Gap 7 mmol/L; Blood Urea Nitrogen 3 mg/dL (7-17); Calcium 8.4 mg/dL (8.4-10.2); Carbon Dioxide 26 mmol/L (22-30); Chloride 107 mmol/L (98-107); Glucose 85 mg/dL (74-99); Magnesium 1.9 mg/dL (1.6-2.3); Potassium 3.7 mmol/L (3.5-5.1); Sodium 140 mmol/L (137-145); Total Bilirubin 0.5 mg/dL (0.2-1.3); Total Protein 5.9 g/dL (6.3-8.2)
[2017-06-25] MEDS ORDERED: fentaNYL (PF) 50 MCG/ML 2 ML AMP ONE (11:54)
[2017-06-25] MEDS ORDERED: PROPOFOL 10 MG/ML 20 ML VIAL IV ONE (11:54)
[2017-06-25] MEDS ORDERED: LIDOCAINE 1% INJ 10MG/ML (20 ML MDV) ONE (11:54)
[2017-06-25] MEDS ORDERED: IV FLUID CONTINUATION 1,000 ML IV ONE ×2 (11:56)
--- NOTE | 2017-06-25 12:17 | P.OP ---
Date of Procedure: 06/25/17 Preoperative Diagnosis: Colitis Postoperative Diagnosis: Severe inflammation of right colon, questionable ischemic: Pathology pending Procedure(s) Performed: Colonoscopy Anesthesia: MAC Surgeon: Jey Clifton Pathology: other (Right colon) Condition: stable Disposition: PACU Description of Procedure: The patient's placed on the endoscopy table in the lateral position. She received IV sedation. The digital rectal exam was performed which revealed no abnormalities. Flexible colonoscope was then placed patient anus and passed throughout the entire colon. In the right colon there were significant inflammatory changes. The mucosa have the appearance of ischemic colitis. A biopsies performed. The scope was withdrawn remainder of the transverse colon, descending colon and sigmoid colon appeared normal. Scope was then brought back the rectum and this appeared normal. Scope was withdrawn for patient.
[2017-06-25 15:07] VITALS: BP 119/60; PULSE 80; TEMP 97.2
--- NOTE | 2017-06-25 15:26 | P.DS ---
Providers Date of admission: 06/23/17 00:36 Expected date of discharge: 06/25/17 Attending physician: Magdalena Tony Consults: 06/23/17 00:42 Consult Physician Routine Consulting Provider: Jey Clifton Consult Reason/Comments: abdominal pain, Crohn's versus infectious colitis Do you want consulting provider notified?: Yes Primary care physician: Martha Torres Hospital Course: Discharge diagnosis 1. Acute ischemic colitis involving the right colon: Status post colonoscopy revealing severe inflammation of the right colon, questionable ischemic with biopsies obtained. Surgical service has cleared her for discharge. Start patient on aspirin 81 mg daily 2. Hematochezia secondary to acute colitis. Hemoglobin is stable. Hemoglobin at discharge 12.4. No further signs of bleeding. 3. Underlying major depressive disorder Hospital course This is a 61-year-old female with past medical history noted below who presented to the emergency room with worsening abdominal pain and blood in her stool. Patient said that her symptoms started couple of days ago and is being getting progressively worse. She described having a lot of pain and discomfort mostly in the lower abdomen. She said that she was having loose stool and what she describes as bloody diarrhea. She said that she had too many bowel movements to count. She was also nauseated but no vomiting. She denies heavy alcohol use or frequent NSAIDs use. She denies having any history of GI bleed in the past. She said that she has similar symptoms in the past that were short and she attributes that to possible flu in her stomach. She was evaluated in the emergency room and was found to be hemodynamically stable. Computed tomography scan of the abdomen and pelvis showed right colitis. Her lab work was all within acceptable range. Patient seen evaluated by surgical service. She underwent colonoscopy with Dr. Mcgill which did reveal severe inflammation in the right colon, questionable ischemic. Biopsies were taken. We'll start patient on aspirin 81 mg by mouth daily for ischemic colitis. Patient does not require any further antibiotics because this is a ischemic colitis and not an infectious colitis. Patient's symptoms have improved. She has had no further blood in the stools and has even been on subcu heparin for DVT prophylaxis without any bleeding. Hemoglobin stable at 12.4. Patient will follow-up with her PCP in [address] Mcgill and 10 days I performed an examination of the patient and discussed their management with the physician Beverage Sales Consultant. I have reviewed the Physician Beverage Sales Consultant's notes and agree with the documented findings and plan of care Patient Condition at Discharge: Stable Plan - Discharge Summary Discharge Rx Participant: Yes New Discharge Prescriptions: New Aspirin EC [Ecotrin Low Dose] 81 mg PO DAILY #30 tablet. Continue FLUoxetine HCL [PROzac] 20 mg PO HS Discontinued Naproxen Sodium [Aleve] 220 mg PO BID Discharge Medication List FLUoxetine HCL [PROzac] 20 mg PO HS 01/15/17 [History] Aspirin EC [Ecotrin Low Dose] 81 mg PO DAILY #30 tablet. 06/25/17 [Rx] Follow up Appointment(s)/Referral(s): Martha Torres DO [Primary Care Provider] - 1 Week Jey Clifton MD [STAFF PHYSICIAN] - 10 Days Patient Instructions/Handouts: Infectious Colitis (GEN) Activity/Diet/Wound Care/Special Instructions: Regular, crohns diet as tolerated. Activity as tolerated. Discharge Disposition: HOME SELF-CARE
[2017-06-25] MEDS: LEVOFLOXACIN 500MG-D5W PMX 500 MG in DEXTROSE/WATER 1 100ML.BAG IVPB SCH (15:47)
== END 2017-06-25 17:21 | disposition home or self-care (01) | DRG 394 ==
LOC: EC 19:07 → 4MS4W 06-23 00:36
PROVIDERS: ADMIT Internal Medicine; ATTEND Internal Medicine
PROC: 0DBF8ZX Excision of Right Large Intestine, Via Natural or Artificial Opening Endoscopic, Diagnostic (ICD-10-PCS; principal; 2017-06-25 12:50)
DX: K55.039 Acute (reversible) ischemia of large intestine, extent unspecified (principal); Z68.41 Body mass index [BMI] 40.0-44.9, adult; K76.89 Other specified diseases of liver; E27.9 Disorder of adrenal gland, unspecified; F32.9 Major depressive disorder, single episode, unspecified; F41.9 Anxiety disorder, unspecified; M19.90 Unspecified osteoarthritis, unspecified site; E66.9 Obesity, unspecified; Z79.899 Other long term (current) drug therapy; Z86.14 Personal history of Methicillin resistant Staphylococcus aureus infection; Z90.49 Acquired absence of other specified parts of digestive tract
CPT/HCPCS: 36415; 45380; 74019; 74177; 80053; 81001; 82150; 82272; 82550; 82553; 83605; 83690; 83735; 84132; 84484; 85025; 85610; 87045; 87046; 87086; 87324; 87502; 88305; 93005; 96361; 96365; 96375; 99285